=== PATIENT | male | born 1955 | race Two or more races ===

== ENCOUNTER 2020-03-17 03:53 | Inpatient (IN) | payer SELFPAY ==
[~2020-03-17] VITALS: Ht 165.1 cm; Wt 70.9 kg
--- NOTE | 2020-03-17 04:11 | NUR ---
Patient BIB flight from [place] for a septic arthritic left knee. Patient WBC at their facility were 25. Patient received Rocephin and Vanco ROAD FREIGHT CONDUCTOR. Patient is in NAD. Respirations even and unlabored.
[2020-03-17 04:35] LABS: MEAN CORPUSCULAR HEMOGLOBIN 29.7 pg (27.5-34.5); MEAN CORPUSCULAR HGB CONC 32.7 g/dL (33.2-36.2); MEAN CORPUSCULAR VOLUME 90.9 fL (81-97); MEAN PLATELET VOLUME 7.9 fL (7.4-10.4); PLATELET COUNT 350 x10^3/uL (130-400); RED BLOOD COUNT 4.64 x10^6/uL (4.38-5.82); RED CELL DISTRIBUTION WIDTH 12.2 % (9.4-14.8)
--- NOTE | 2020-03-17 04:40 | NUR ---
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 Calling [facility] to confirm.
[2020-03-17 04:47] LABS: ALBUMIN 2.8 g/dL (3.4-5.0); ANION GAP 10 mmol/L (5-15); CALCIUM 8.7 mg/dL (8.5-10.1); CHLORIDE 100 mmol/L (98-107); CREATININE 0.77 mg/dL (0.7-1.3)
[2020-03-17 04:49] LABS: BASOPHILS # (AUTO) 0.02 x10^3/uL (0-0.1); BASOPHILS % (AUTO) 0 % (0-1); EOSINOPHILS % (AUTO) 0 % (1-7); LYMPHOCYTES # (AUTO) 1.22 x10^3/uL (1-3.4); LYMPHOCYTES % (AUTO) 6 % (22-44); MD SCAN; MONOCYTES # (AUTO) 0.45 x10^3/uL (0.2-0.8); MONOCYTES % (AUTO) 2 % (2-9); NEUTROPHILS # (AUTO) 19.84 x10^3/uL (1.8-6.8); NEUTROPHILS % (AUTO) 92 % (42-75)
[2020-03-17] MEDS ORDERED: PRED20TA PO (05:08)
[2020-03-17] MEDS ORDERED: INDO75CA3 PO (05:08)
[2020-03-17] MEDS ORDERED: BISACODYL 10 MG SUPP PR PRN (06:00)
[2020-03-17] MEDS ORDERED: VANCOMYCIN PER PHARMACY MC PRN (06:00)
[2020-03-17] MEDS ORDERED: hydrALAzine 20 MG/ML, 1ML IVPush PRN (06:00)
[2020-03-17] MEDS ORDERED: PROMETHAZINE 25 MG/ML, 1ML IM PRN (06:00)
[2020-03-17] MEDS ORDERED: ONDANSETRON 2MG/ML, 2ML IVPush PRN ×2 (06:00→15:00)
--- NOTE | 2020-03-17 06:21 | NUR ---
Report given to KIRILL Willett. Patient to be transferred to room 452.
[2020-03-17 06:37] LABS: CHOL/HDL RATIO 7.5; LDL/HDL RATIO 4.4 (0.5-3.0)
[2020-03-17] MEDS ORDERED: HYDROmorphone 1 MG/ML, 1ML INJ ONE (06:49)
[2020-03-17] MEDS: HYDROmorphone 2 MG/ML, 1ML IVPush PRN ×3 (06:52→13:25)
--- NOTE | 2020-03-17 06:53 | NUR ---
Patient c/o increased pain. Medicated patient per mar.
[2020-03-17 07:51] VITALS: BP 144/86
[2020-03-17] MEDS: SODIUM CHLORIDE 0.9% 1,000 ML IV SCH ×2 (08:15→20:00)
[2020-03-17] MEDS: PIPERACILLIN/TAZO/PMX 3.375GM 50 ML IV SCH ×2 (08:29→18:05)
[2020-03-17] MEDS ORDERED: PHARMACOKINETIC MONITORING MC PRN (09:00)
[2020-03-17] MEDS ORDERED: VANCOMYCIN 1,500 MG in SODIUM CHLORIDE 0.9% 250 ML IV ONE (09:00)
[2020-03-17] MEDS ORDERED: PHARMACOKINETIC CONSULTATION MC ONE (09:00)
[2020-03-17 10:20] LABS: MICROSCOPIC NOT IND
[2020-03-17] MEDS: INSULIN LISPRO 100 UNITS/ML, PEN SQ-INSULIN SCH ×4 (10:47→21:04)
[2020-03-17] MEDS ORDERED: CHLORHEXIDINE 15 ML UDC MM STA (14:09)
[2020-03-17] MEDS ORDERED: MIDAZOLAM 1 MG/ML, 2ML ONE (14:41)
[2020-03-17] MEDS ORDERED: FENTANYL PF 100 MCG/2ML ONE ×3 (14:41→15:29)
[2020-03-17] MEDS ORDERED: KETOROLAC 30 MG/1 ML ONE (14:54)
[2020-03-17] MEDS ORDERED: LIDOCAINE-MPF 2% ,5ML ONE (14:54)
[2020-03-17] MEDS ORDERED: LABETALOL 5MG/ML, 20ML IV PRN (15:00)
[2020-03-17] MEDS ORDERED: HYDROmorphone 1 MG/ML, 1ML INJ IVPush PRN (15:00)
[2020-03-17] MEDS ORDERED: EPHEDRINE 50 MG/ML, 1ML IVPush PRN (15:00)
[2020-03-17] MEDS ORDERED: ACETAMINOPHEN 325 MG TABLET PO PRN (15:00)
[2020-03-17] MEDS ORDERED: hydrALAzine 20 MG/ML, 1ML IV PRN (15:00)
[2020-03-17] MEDS ORDERED: PROMETHAZINE 25 MG/ML, 1ML IVPush PRN (15:00)
[2020-03-17] MEDS ORDERED: MEPERIDINE/PF 25MG/0.5ML IVPush PRN (15:00)
[2020-03-17] MEDS ORDERED: OXYcodone 5 MG/5 ML ORAL.SOL UDC PO PRN (15:00)
[2020-03-17] MEDS ORDERED: PROPOFOL 10 MG/ML, 20ML ONE (15:02)
[2020-03-17] MEDS ORDERED: ONDANSETRON 2MG/ML, 2ML ONE (15:02)
[2020-03-17] MEDS ORDERED: DEXAMETHASONE 4 MG/ML, 1ML ONE (15:02)
[2020-03-17] MEDS ORDERED: OXYcodone 5 MG/5 ML ORAL.SOL UDC ONE (15:29)
[2020-03-17] MEDS ORDERED: ACETAMINOPHEN 650 MG/20.3 ML UDC ONE (15:33)
[2020-03-17] MEDS: FENTANYL PF 100 MCG/2ML IV PRN ×2 (15:41→15:49)
[2020-03-17 16:45] VITALS: BP 132/81
[2020-03-17 19:02] VITALS: BP 127/74
[2020-03-17] MEDS: MELATONIN 5 MG TABLET PO PRN (21:11)
[2020-03-17] MEDS: ACETAMINOPHEN 325 MG TABLET PO PRN (21:11)
[2020-03-17 23:58] VITALS: BP 116/70
[2020-03-18] MEDS: PIPERACILLIN/TAZO/PMX 3.375GM 50 ML IV SCH (02:11)
[2020-03-18] MEDS: VANCOMYCIN 1,400 MG in SODIUM CHLORIDE 0.9% 250 ML IV SCH ×2 (03:18→21:27)
[2020-03-18 03:29] VITALS: BP 113/67
[2020-03-18 05:16] LABS: MEAN CORPUSCULAR HEMOGLOBIN 30.4 pg (27.5-34.5); MEAN CORPUSCULAR HGB CONC 33.5 g/dL (33.2-36.2); MEAN CORPUSCULAR VOLUME 90.7 fL (81-97); MEAN PLATELET VOLUME 8.1 fL (7.4-10.4); PLATELET COUNT 312 x10^3/uL (130-400); RED BLOOD COUNT 4.29 x10^6/uL (4.38-5.82); RED CELL DISTRIBUTION WIDTH 12.6 % (9.4-14.8)
[2020-03-18 05:22] LABS: ANION GAP 10 mmol/L (5-15); CALCIUM 8.7 mg/dL (8.5-10.1); CHLORIDE 104 mmol/L (98-107)
[2020-03-18 05:23] LABS: CREATININE 0.68 mg/dL (0.7-1.3)
[2020-03-18 05:52] LABS: BASOPHILS % (AUTO) 0 % (0-1); EOSINOPHILS % (AUTO) 0 % (1-7); LYMPHOCYTES # (AUTO) 1.44 x10^3/uL (1-3.4); LYMPHOCYTES % (AUTO) 7 % (22-44); MD SCAN; MONOCYTES # (AUTO) 0.71 x10^3/uL (0.2-0.8); MONOCYTES % (AUTO) 3 % (2-9); NEUTROPHILS # (AUTO) 19.37 x10^3/uL (1.8-6.8); NEUTROPHILS % (AUTO) 90 % (42-75)
[2020-03-18 07:00] VITALS: BP 138/73
[2020-03-18] MEDS: ACETAMINOPHEN 325 MG TABLET PO PRN (07:44)
[2020-03-18] MEDS: INSULIN LISPRO 100 UNITS/ML, PEN SQ-INSULIN SCH ×4 (07:44→21:46)
[2020-03-18] MEDS ORDERED: AZITHROMYCIN 500 MG TABLET PO ONE (10:30)
[2020-03-18] MEDS: SODIUM CHLORIDE 0.9% 1,000 ML IV SCH ×2 (11:03→22:00)
[2020-03-18] MEDS: CEFTRIAXONE PMX 2GM/50ML 50 ML IV SCH (11:04)
[2020-03-18] MEDS ORDERED: HYDROcodone/APAP 5/325 TABLET ONE (13:33)
[2020-03-18] MEDS: HYDROcodone/APAP 5/325 TABLET PO PRN ×2 (13:35→18:29)
[2020-03-18 14:25] VITALS: BP 161/82
[2020-03-18 18:29] VITALS: BP 167/91
[2020-03-18] MEDS ORDERED: INSULIN GLARGINE 100 UNITS/ML, PEN SQ-INSULIN SCH (21:00)
[2020-03-18] MEDS: HYDROmorphone 2 MG/ML, 1ML IVPush PRN (21:26)
[2020-03-19] MEDS: DOCUSATE 100 MG CAPSULE PO PRN ×2 (02:21→20:05)
[2020-03-19 02:31] VITALS: BP_SYST 115; BP_SYST 155; BP_DIAS 49; BP_DIAS 91
[2020-03-19] MEDS: HYDROcodone/APAP 5/325 TABLET PO PRN ×4 (03:54→20:05)
[2020-03-19 05:02] LABS: BASOPHILS # (AUTO) 0.01 x10^3/uL (0-0.1); BASOPHILS % (AUTO) 0 % (0-1); EOSINOPHILS # (AUTO) 0.03 x10^3/uL (0-0.4); EOSINOPHILS % (AUTO) 0 % (1-7); LYMPHOCYTES # (AUTO) 2.07 x10^3/uL (1-3.4); LYMPHOCYTES % (AUTO) 15 % (22-44); MD NO; MEAN CORPUSCULAR HEMOGLOBIN 30.3 pg (27.5-34.5); MEAN CORPUSCULAR HGB CONC 33.5 g/dL (33.2-36.2); MEAN CORPUSCULAR VOLUME 90.4 fL (81-97); MONOCYTES # (AUTO) 0.71 x10^3/uL (0.2-0.8); MONOCYTES % (AUTO) 5 % (2-9); NEUTROPHILS # (AUTO) 11.17 x10^3/uL (1.8-6.8); NEUTROPHILS % (AUTO) 80 % (42-75); PLATELET COUNT 342 x10^3/uL (130-400); RED BLOOD COUNT 4.28 x10^6/uL (4.38-5.82); RED CELL DISTRIBUTION WIDTH 12.8 % (9.4-14.8)
[2020-03-19 05:09] LABS: ANION GAP 9 mmol/L (5-15); CALCIUM 7.9 mg/dL (8.5-10.1); CHLORIDE 101 mmol/L (98-107); CREATININE 0.64 mg/dL (0.7-1.3)
[2020-03-19 07:44] VITALS: BP 151/91
[2020-03-19] MEDS: INSULIN LISPRO 100 UNITS/ML, PEN SQ-INSULIN SCH ×4 (08:06→20:22)
[2020-03-19] MEDS: SODIUM CHLORIDE 0.9% 1,000 ML IV SCH ×2 (08:07→16:35)
[2020-03-19] MEDS ORDERED: POTASSIUM CHLORIDE 20 MEQ TAB.ER.PRT PO ONE (09:00)
[2020-03-19] MEDS: CEFTRIAXONE PMX 2GM/50ML 50 ML IV SCH (09:40)
[2020-03-19] MEDS: LISINOPRIL 10 MG TABLET PO SCH ×2 (11:30→12:44)
[2020-03-19 12:31] VITALS: BP 159/86
[2020-03-19] MEDS: metFORMIN 500 MG TABLET PO SCH (16:35)
[2020-03-19 19:06] VITALS: BP 147/86
[2020-03-19] MEDS: POLYETHYLENE GLYCOL 17 GM PACKET PO PRN (20:05)
[2020-03-19] MEDS: HYDROmorphone 2 MG/ML, 1ML IVPush PRN (20:11)
[2020-03-19] MEDS ORDERED: INSULIN GLARGINE 100 UNITS/ML, PEN SQ-INSULIN SCH (21:00)
[2020-03-20] MEDS: SODIUM CHLORIDE 0.9% 1,000 ML IV SCH ×2 (00:03→06:15)
[2020-03-20 00:36] VITALS: BP_SYST 163; BP_SYST 172; BP_DIAS 82; BP_DIAS 91
[2020-03-20] MEDS: HYDROmorphone 2 MG/ML, 1ML IVPush PRN ×2 (03:17→20:35)
[2020-03-20] MEDS: HYDROcodone/APAP 5/325 TABLET PO PRN ×5 (04:02→20:35)
[2020-03-20 05:46] LABS: BASOPHILS # (AUTO) 0.03 x10^3/uL (0-0.1); BASOPHILS % (AUTO) 0 % (0-1); EOSINOPHILS # (AUTO) 0.15 x10^3/uL (0-0.4); EOSINOPHILS % (AUTO) 1 % (1-7); LYMPHOCYTES # (AUTO) 2.23 x10^3/uL (1-3.4); LYMPHOCYTES % (AUTO) 22 % (22-44); MD NO; MEAN CORPUSCULAR HEMOGLOBIN 30.2 pg (27.5-34.5); MEAN CORPUSCULAR HGB CONC 33.7 g/dL (33.2-36.2); MEAN CORPUSCULAR VOLUME 89.7 fL (81-97); MEAN PLATELET VOLUME 7.7 fL (7.4-10.4); MONOCYTES # (AUTO) 0.66 x10^3/uL (0.2-0.8); MONOCYTES % (AUTO) 7 % (2-9); NEUTROPHILS # (AUTO) 7.11 x10^3/uL (1.8-6.8); NEUTROPHILS % (AUTO) 70 % (42-75); PLATELET COUNT 357 x10^3/uL (130-400); RED BLOOD COUNT 4.34 x10^6/uL (4.38-5.82); RED CELL DISTRIBUTION WIDTH 12.9 % (9.4-14.8)
[2020-03-20 05:47] LABS: ANION GAP 10 mmol/L (5-15); CALCIUM 8.1 mg/dL (8.5-10.1); CHLORIDE 100 mmol/L (98-107)
[2020-03-20 05:51] LABS: CREATININE 0.57 mg/dL (0.7-1.3)
[2020-03-20 07:26] VITALS: BP 156/85
[2020-03-20] MEDS: metFORMIN 500 MG TABLET PO SCH ×2 (08:00→16:34)
[2020-03-20] MEDS: LISINOPRIL 10 MG TABLET PO SCH (08:00)
[2020-03-20] MEDS: INSULIN LISPRO 100 UNITS/ML, PEN SQ-INSULIN SCH ×3 (08:01→16:34)
[2020-03-20] MEDS: CEFTRIAXONE PMX 2GM/50ML 50 ML IV SCH (10:04)
[2020-03-20] MEDS: ENOXAPARIN 40 MG/0.4 ML SQ SCH (11:29)
[2020-03-20 14:26] VITALS: BP 157/92
[2020-03-20 19:38] VITALS: BP 171/84
[2020-03-20] MEDS ORDERED: INSULIN GLARGINE 100 UNITS/ML, PEN SQ-INSULIN SCH (21:00)
[2020-03-21] MEDS: HYDROmorphone 2 MG/ML, 1ML IVPush PRN ×3 (00:05→17:55)
[2020-03-21] MEDS: INSULIN LISPRO 100 UNITS/ML, PEN SQ-INSULIN SCH ×5 (00:56→21:13)
[2020-03-21] MEDS: HYDROcodone/APAP 5/325 TABLET PO PRN ×4 (00:58→21:12)
[2020-03-21 02:21] VITALS: BP 143/78
[2020-03-21 04:55] LABS: BASOPHILS # (AUTO) 0.03 x10^3/uL (0-0.1); BASOPHILS % (AUTO) 0 % (0-1); EOSINOPHILS # (AUTO) 0.18 x10^3/uL (0-0.4); EOSINOPHILS % (AUTO) 2 % (1-7); LYMPHOCYTES # (AUTO) 2.34 x10^3/uL (1-3.4); LYMPHOCYTES % (AUTO) 22 % (22-44); MD NO; MEAN CORPUSCULAR HGB CONC 32.7 g/dL (33.2-36.2); MEAN CORPUSCULAR VOLUME 91.8 fL (81-97); MEAN PLATELET VOLUME 7.4 fL (7.4-10.4); MONOCYTES # (AUTO) 0.88 x10^3/uL (0.2-0.8); MONOCYTES % (AUTO) 8 % (2-9); NEUTROPHILS # (AUTO) 7.14 x10^3/uL (1.8-6.8); NEUTROPHILS % (AUTO) 68 % (42-75); PLATELET COUNT 420 x10^3/uL (130-400); RED BLOOD COUNT 4.49 x10^6/uL (4.38-5.82); RED CELL DISTRIBUTION WIDTH 12.7 % (9.4-14.8)
[2020-03-21 05:03] LABS: ANION GAP 10 mmol/L (5-15); CALCIUM 8.6 mg/dL (8.5-10.1); CHLORIDE 100 mmol/L (98-107); CREATININE 0.62 mg/dL (0.7-1.3)
[2020-03-21 07:10] VITALS: BP 138/80
[2020-03-21] MEDS: LISINOPRIL 10 MG TABLET PO SCH (08:04)
[2020-03-21] MEDS: metFORMIN 500 MG TABLET PO SCH ×2 (08:04→16:12)
[2020-03-21] MEDS ORDERED: POTASSIUM CHLORIDE 20 MEQ TAB.ER.PRT PO ONE (09:30)
[2020-03-21] MEDS: CEFTRIAXONE PMX 2GM/50ML 50 ML IV SCH (09:49)
[2020-03-21] MEDS: ENOXAPARIN 40 MG/0.4 ML SQ SCH (11:08)
[2020-03-21 13:36] VITALS: BP 167/85
[2020-03-21 20:01] VITALS: BP 157/82
[2020-03-21] MEDS: INSULIN GLARGINE 100 UNITS/ML, PEN SQ-INSULIN SCH (21:13)
[2020-03-22] MEDS: HYDROmorphone 2 MG/ML, 1ML IVPush PRN ×2 (01:09→21:39)
[2020-03-22] MEDS: HYDROcodone/APAP 5/325 TABLET PO PRN ×6 (01:40→22:22)
[2020-03-22 01:58] VITALS: BP 131/77
[2020-03-22 05:50] LABS: BASOPHILS # (AUTO) 0.03 x10^3/uL (0-0.1); BASOPHILS % (AUTO) 0 % (0-1); EOSINOPHILS # (AUTO) 0.26 x10^3/uL (0-0.4); EOSINOPHILS % (AUTO) 3 % (1-7); LYMPHOCYTES # (AUTO) 2.55 x10^3/uL (1-3.4); LYMPHOCYTES % (AUTO) 28 % (22-44); MD NO; MEAN CORPUSCULAR HGB CONC 33.4 g/dL (33.2-36.2); MEAN CORPUSCULAR VOLUME 89.7 fL (81-97); MEAN PLATELET VOLUME 7.4 fL (7.4-10.4); MONOCYTES # (AUTO) 0.66 x10^3/uL (0.2-0.8); MONOCYTES % (AUTO) 7 % (2-9); NEUTROPHILS # (AUTO) 5.57 x10^3/uL (1.8-6.8); NEUTROPHILS % (AUTO) 62 % (42-75); PLATELET COUNT 443 x10^3/uL (130-400); RED BLOOD COUNT 4.52 x10^6/uL (4.38-5.82); RED CELL DISTRIBUTION WIDTH 12.8 % (9.4-14.8)
[2020-03-22 05:56] LABS: ANION GAP 12 mmol/L (5-15); CALCIUM 9.5 mg/dL (8.5-10.1); CHLORIDE 99 mmol/L (98-107)
[2020-03-22 05:57] LABS: CREATININE 0.63 mg/dL (0.7-1.3)
[2020-03-22 07:23] VITALS: BP 146/79
[2020-03-22] MEDS: LISINOPRIL 10 MG TABLET PO SCH (07:59)
[2020-03-22] MEDS: metFORMIN 500 MG TABLET PO SCH ×2 (07:59→16:25)
[2020-03-22] MEDS: INSULIN LISPRO 100 UNITS/ML, PEN SQ-INSULIN SCH ×4 (08:00→21:40)
[2020-03-22] MEDS: CEFTRIAXONE PMX 2GM/50ML 50 ML IV SCH (09:16)
[2020-03-22] MEDS: ENOXAPARIN 40 MG/0.4 ML SQ SCH (10:55)
[2020-03-22 14:38] VITALS: BP 144/75
[2020-03-22 19:15] VITALS: BP 157/83
[2020-03-22] MEDS: INSULIN GLARGINE 100 UNITS/ML, PEN SQ-INSULIN SCH (21:40)
[2020-03-23] MEDS: HYDROcodone/APAP 5/325 TABLET PO PRN ×5 (01:31→20:31)
[2020-03-23 02:28] VITALS: BP 130/76
[2020-03-23 04:05] LABS: BASOPHILS # (AUTO) 0.03 x10^3/uL (0-0.1); BASOPHILS % (AUTO) 0 % (0-1); EOSINOPHILS # (AUTO) 0.36 x10^3/uL (0-0.4); EOSINOPHILS % (AUTO) 4 % (1-7); LYMPHOCYTES # (AUTO) 1.98 x10^3/uL (1-3.4); LYMPHOCYTES % (AUTO) 21 % (22-44); MD NO; MEAN CORPUSCULAR HEMOGLOBIN 30.3 pg (27.5-34.5); MEAN CORPUSCULAR HGB CONC 33.6 g/dL (33.2-36.2); MEAN CORPUSCULAR VOLUME 90.1 fL (81-97); MEAN PLATELET VOLUME 7.6 fL (7.4-10.4); MONOCYTES # (AUTO) 0.65 x10^3/uL (0.2-0.8); MONOCYTES % (AUTO) 7 % (2-9); NEUTROPHILS # (AUTO) 6.61 x10^3/uL (1.8-6.8); NEUTROPHILS % (AUTO) 69 % (42-75); PLATELET COUNT 475 x10^3/uL (130-400); RED BLOOD COUNT 4.35 x10^6/uL (4.38-5.82); RED CELL DISTRIBUTION WIDTH 12.7 % (9.4-14.8)
[2020-03-23 04:17] LABS: ANION GAP 7 mmol/L (5-15); CALCIUM 8.9 mg/dL (8.5-10.1); CHLORIDE 100 mmol/L (98-107); CREATININE 0.64 mg/dL (0.7-1.3)
[2020-03-23] MEDS: HYDROmorphone 2 MG/ML, 1ML IVPush PRN ×3 (06:19→23:44)
[2020-03-23 07:54] VITALS: BP 130/97
[2020-03-23] MEDS: LISINOPRIL 20 MG TABLET PO SCH (08:21)
[2020-03-23] MEDS: metFORMIN 500 MG TABLET PO SCH ×2 (08:21→16:31)
[2020-03-23] MEDS: INSULIN LISPRO 100 UNITS/ML, PEN SQ-INSULIN SCH ×4 (08:21→23:31)
[2020-03-23] MEDS: CEFTRIAXONE PMX 2GM/50ML 50 ML IV SCH (10:24)
[2020-03-23] MEDS: ENOXAPARIN 40 MG/0.4 ML SQ SCH (10:36)
[2020-03-23 12:57] VITALS: BP 134/80
[2020-03-23 20:42] VITALS: BP 152/92
[2020-03-23] MEDS: INSULIN GLARGINE 100 UNITS/ML, PEN SQ-INSULIN SCH (23:32)
[2020-03-24] MEDS: HYDROcodone/APAP 5/325 TABLET PO PRN ×6 (00:50→22:25)
[2020-03-24 02:01] VITALS: BP 145/80
[2020-03-24] MEDS: DOCUSATE 100 MG CAPSULE PO PRN (04:57)
[2020-03-24 06:35] VITALS: BP 145/81
[2020-03-24 07:32] LABS: BASOPHILS # (AUTO) 0.01 x10^3/uL (0-0.1); BASOPHILS % (AUTO) 0 % (0-1); EOSINOPHILS # (AUTO) 0.32 x10^3/uL (0-0.4); EOSINOPHILS % (AUTO) 4 % (1-7); LYMPHOCYTES # (AUTO) 1.82 x10^3/uL (1-3.4); LYMPHOCYTES % (AUTO) 22 % (22-44); MD NO; MEAN CORPUSCULAR HEMOGLOBIN 29.9 pg (27.5-34.5); MEAN CORPUSCULAR HGB CONC 33.2 g/dL (33.2-36.2); MEAN PLATELET VOLUME 7.5 fL (7.4-10.4); MONOCYTES # (AUTO) 0.65 x10^3/uL (0.2-0.8); MONOCYTES % (AUTO) 8 % (2-9); NEUTROPHILS # (AUTO) 5.68 x10^3/uL (1.8-6.8); NEUTROPHILS % (AUTO) 67 % (42-75); PLATELET COUNT 525 x10^3/uL (130-400); RED BLOOD COUNT 4.51 x10^6/uL (4.38-5.82); RED CELL DISTRIBUTION WIDTH 12.7 % (9.4-14.8)
[2020-03-24 07:33] LABS: HCT (SEDRATE) 40.6 % (39.2-51.8)
[2020-03-24 07:44] LABS: ALBUMIN 2.3 g/dL (3.4-5.0); ANION GAP 10 mmol/L (5-15); CHLORIDE 96 mmol/L (98-107)
[2020-03-24] MEDS: POLYETHYLENE GLYCOL 17 GM PACKET PO PRN (07:49)
[2020-03-24] MEDS: metFORMIN 500 MG TABLET PO SCH ×2 (07:49→16:26)
[2020-03-24] MEDS: LISINOPRIL 20 MG TABLET PO SCH (07:49)
[2020-03-24] MEDS: INSULIN LISPRO 100 UNITS/ML, PEN SQ-INSULIN SCH ×4 (07:50→21:50)
[2020-03-24 07:52] LABS: ALANINE AMINOTRANSFERASE 36 U/L (12-78); ALKALINE PHOSPHATASE 170 U/L (45-117); BILIRUBIN,TOTAL 0.8 mg/dL (0.2-1.0); CREATININE 0.75 mg/dL (0.7-1.3); TOTAL PROTEIN 8.9 g/dL (6.4-8.2)
[2020-03-24] MEDS: CEFTRIAXONE PMX 2GM/50ML 50 ML IV SCH (09:19)
[2020-03-24] MEDS: HYDROmorphone 2 MG/ML, 1ML IVPush PRN ×2 (11:37→21:36)
[2020-03-24] MEDS: ENOXAPARIN 40 MG/0.4 ML SQ SCH (11:38)
[2020-03-24 14:45] VITALS: BP 123/65
[2020-03-24] MEDS: FERROUS SULFATE 325 MG TABLET PO SCH (16:26)
[2020-03-24 20:14] VITALS: BP 144/82
[2020-03-24] MEDS: INSULIN GLARGINE 100 UNITS/ML, PEN SQ-INSULIN SCH (21:50)
[2020-03-24] MEDS: MELATONIN 5 MG TABLET PO PRN (22:25)
[2020-03-25 02:22] VITALS: BP 148/79
[2020-03-25] MEDS: HYDROcodone/APAP 5/325 TABLET PO PRN ×6 (02:30→22:33)
[2020-03-25 05:43] LABS: BASOPHILS # (AUTO) 0.03 x10^3/uL (0-0.1); BASOPHILS % (AUTO) 0 % (0-1); EOSINOPHILS # (AUTO) 0.38 x10^3/uL (0-0.4); EOSINOPHILS % (AUTO) 5 % (1-7); LYMPHOCYTES # (AUTO) 2.16 x10^3/uL (1-3.4); LYMPHOCYTES % (AUTO) 26 % (22-44); MD NO; MEAN CORPUSCULAR HEMOGLOBIN 29.9 pg (27.5-34.5); MEAN CORPUSCULAR HGB CONC 33.3 g/dL (33.2-36.2); MEAN CORPUSCULAR VOLUME 89.9 fL (81-97); MEAN PLATELET VOLUME 7.7 fL (7.4-10.4); MONOCYTES # (AUTO) 0.65 x10^3/uL (0.2-0.8); MONOCYTES % (AUTO) 8 % (2-9); NEUTROPHILS # (AUTO) 5.18 x10^3/uL (1.8-6.8); NEUTROPHILS % (AUTO) 62 % (42-75); PLATELET COUNT 448 x10^3/uL (130-400); RED BLOOD COUNT 4.41 x10^6/uL (4.38-5.82); RED CELL DISTRIBUTION WIDTH 12.7 % (9.4-14.8)
[2020-03-25 06:03] LABS: ANION GAP 9 mmol/L (5-15); CALCIUM 9.1 mg/dL (8.5-10.1); CHLORIDE 99 mmol/L (98-107); CREATININE 0.66 mg/dL (0.7-1.3)
[2020-03-25] MEDS: INSULIN LISPRO 100 UNITS/ML, PEN SQ-INSULIN SCH ×4 (07:00→22:40)
[2020-03-25 07:36] VITALS: BP 152/74
[2020-03-25] MEDS: CEFTRIAXONE PMX 2GM/50ML 50 ML IV SCH (09:15)
[2020-03-25] MEDS: DOCUSATE 100 MG CAPSULE PO PRN (09:16)
[2020-03-25] MEDS: FERROUS SULFATE 325 MG TABLET PO SCH ×2 (09:16→17:12)
[2020-03-25] MEDS: metFORMIN 500 MG TABLET PO SCH ×2 (09:16→17:13)
[2020-03-25] MEDS: LISINOPRIL 20 MG TABLET PO SCH (09:16)
[2020-03-25] MEDS: ENOXAPARIN 40 MG/0.4 ML SQ SCH (11:35)
[2020-03-25] MEDS: HYDROmorphone 2 MG/ML, 1ML IVPush PRN ×2 (13:17→20:19)
[2020-03-25 14:02] VITALS: BP 127/76
[2020-03-25 20:08] VITALS: BP 144/71
[2020-03-25] MEDS: INSULIN GLARGINE 100 UNITS/ML, PEN SQ-INSULIN SCH (22:41)
[2020-03-26 01:09] VITALS: BP 128/74
[2020-03-26] MEDS: HYDROcodone/APAP 5/325 TABLET PO PRN ×6 (02:43→23:38)
[2020-03-26] MEDS: HYDROmorphone 2 MG/ML, 1ML IVPush PRN ×2 (03:42→13:59)
[2020-03-26] MEDS: INSULIN LISPRO 100 UNITS/ML, PEN SQ-INSULIN SCH ×4 (07:00→19:46)
[2020-03-26 07:09] VITALS: BP 127/73
[2020-03-26] MEDS: DOCUSATE 100 MG CAPSULE PO PRN (08:32)
[2020-03-26] MEDS: FERROUS SULFATE 325 MG TABLET PO SCH ×2 (08:32→16:55)
[2020-03-26] MEDS: metFORMIN 500 MG TABLET PO SCH ×2 (08:32→16:55)
[2020-03-26] MEDS: CEFTRIAXONE PMX 2GM/50ML 50 ML IV SCH (08:33)
[2020-03-26] MEDS: LISINOPRIL 20 MG TABLET PO SCH (08:33)
[2020-03-26] MEDS: ENOXAPARIN 40 MG/0.4 ML SQ SCH (11:22)
[2020-03-26 12:23] VITALS: BP 146/79
[2020-03-26 19:53] VITALS: BP 158/75
[2020-03-26] MEDS: INSULIN GLARGINE 100 UNITS/ML, PEN SQ-INSULIN SCH (20:27)
[2020-03-27 01:56] VITALS: BP 126/75
[2020-03-27] MEDS: HYDROcodone/APAP 5/325 TABLET PO PRN ×5 (03:41→19:52)
[2020-03-27 07:00] VITALS: BP 130/77
[2020-03-27] MEDS: INSULIN LISPRO 100 UNITS/ML, PEN SQ-INSULIN SCH ×4 (07:20→20:57)
[2020-03-27] MEDS: FERROUS SULFATE 325 MG TABLET PO SCH ×2 (07:54→17:37)
[2020-03-27] MEDS: metFORMIN 500 MG TABLET PO SCH ×2 (07:56→17:37)
[2020-03-27] MEDS: LISINOPRIL 20 MG TABLET PO SCH (07:59)
[2020-03-27] MEDS: CEFTRIAXONE PMX 2GM/50ML 50 ML IV SCH (09:11)
[2020-03-27] MEDS: ENOXAPARIN 40 MG/0.4 ML SQ SCH (11:52)
[2020-03-27 14:45] VITALS: BP 147/84
[2020-03-27 20:27] VITALS: BP 151/80
[2020-03-27] MEDS: INSULIN GLARGINE 100 UNITS/ML, PEN SQ-INSULIN SCH (20:57)
[2020-03-28] MEDS: HYDROcodone/APAP 5/325 TABLET PO PRN ×5 (00:02→20:10)
[2020-03-28 00:25] VITALS: BP 148/73
[2020-03-28] MEDS: INSULIN LISPRO 100 UNITS/ML, PEN SQ-INSULIN SCH ×4 (06:25→20:11)
[2020-03-28 07:12] VITALS: BP 136/79
[2020-03-28] MEDS: metFORMIN 500 MG TABLET PO SCH ×2 (08:39→16:32)
[2020-03-28] MEDS: FERROUS SULFATE 325 MG TABLET PO SCH ×2 (08:39→16:32)
[2020-03-28] MEDS: LISINOPRIL 20 MG TABLET PO SCH (08:40)
[2020-03-28] MEDS: CEFTRIAXONE PMX 2GM/50ML 50 ML IV SCH (10:41)
[2020-03-28] MEDS: ENOXAPARIN 40 MG/0.4 ML SQ SCH (12:19)
[2020-03-28 14:54] VITALS: BP 121/72
[2020-03-28] MEDS ORDERED: MORPHINE SULFATE 4 MG/ML, 1ML IVPush PRN (18:00)
[2020-03-28 18:43] VITALS: BP 127/80
[2020-03-28] MEDS: INSULIN GLARGINE 100 UNITS/ML, PEN SQ-INSULIN SCH (20:11)
[2020-03-29 00:45] VITALS: BP 144/87
[2020-03-29] MEDS: HYDROcodone/APAP 5/325 TABLET PO PRN ×5 (05:09→20:59)
[2020-03-29] MEDS: INSULIN LISPRO 100 UNITS/ML, PEN SQ-INSULIN SCH ×4 (06:50→20:55)
[2020-03-29 06:51] LABS: ANION GAP 9 mmol/L (5-15); CALCIUM 8.9 mg/dL (8.5-10.1); CHLORIDE 101 mmol/L (98-107); CREATININE 0.63 mg/dL (0.7-1.3)
[2020-03-29 07:50] VITALS: BP 135/80
[2020-03-29] MEDS: CEFTRIAXONE PMX 2GM/50ML 50 ML IV SCH (08:43)
[2020-03-29] MEDS: LISINOPRIL 20 MG TABLET PO SCH (08:43)
[2020-03-29] MEDS: FERROUS SULFATE 325 MG TABLET PO SCH ×2 (08:44→16:57)
[2020-03-29] MEDS: metFORMIN 500 MG TABLET PO SCH ×2 (08:44→16:58)
[2020-03-29] MEDS: ENOXAPARIN 40 MG/0.4 ML SQ SCH (12:08)
[2020-03-29 13:36] VITALS: BP 124/77
[2020-03-29] MEDS ORDERED: DIPHENHYDRAMINE 25 MG CAPSULE PO PRN (16:30)
[2020-03-29 19:24] VITALS: BP 117/73
[2020-03-29] MEDS: INSULIN GLARGINE 100 UNITS/ML, PEN SQ-INSULIN SCH (21:07)
[2020-03-30] MEDS: HYDROcodone/APAP 5/325 TABLET PO PRN ×4 (01:01→13:31)
[2020-03-30 01:17] VITALS: BP 136/82
[2020-03-30 04:23] LABS: ANION GAP 6 mmol/L (5-15); CHLORIDE 101 mmol/L (98-107)
[2020-03-30 04:25] LABS: CREATININE 0.76 mg/dL (0.7-1.3)
[2020-03-30 04:28] LABS: MEAN CORPUSCULAR HGB CONC 33.7 g/dL (33.2-36.2); MEAN CORPUSCULAR VOLUME 89.1 fL (81-97); MEAN PLATELET VOLUME 7.3 fL (7.4-10.4); PLATELET COUNT 549 x10^3/uL (130-400); RED BLOOD COUNT 4.05 x10^6/uL (4.38-5.82); RED CELL DISTRIBUTION WIDTH 12.5 % (9.4-14.8)
[2020-03-30 05:12] LABS: BASOPHILS # (AUTO) 0.03 x10^3/uL (0-0.1); BASOPHILS % (AUTO) 1 % (0-1); EOSINOPHILS # (AUTO) 0.36 x10^3/uL (0-0.4); EOSINOPHILS % (AUTO) 7 % (1-7); LYMPHOCYTES # (AUTO) 2.39 x10^3/uL (1-3.4); LYMPHOCYTES % (AUTO) 43 % (22-44); MD SCAN; MONOCYTES # (AUTO) 0.57 x10^3/uL (0.2-0.8); MONOCYTES % (AUTO) 10 % (2-9); NEUTROPHILS # (AUTO) 2.18 x10^3/uL (1.8-6.8); NEUTROPHILS % (AUTO) 39 % (42-75)
[2020-03-30] MEDS: INSULIN LISPRO 100 UNITS/ML, PEN SQ-INSULIN SCH ×4 (07:00→20:50)
[2020-03-30] MEDS: FERROUS SULFATE 325 MG TABLET PO SCH ×2 (09:17→17:05)
[2020-03-30] MEDS: metFORMIN 500 MG TABLET PO SCH ×2 (09:17→17:05)
[2020-03-30] MEDS: LISINOPRIL 20 MG TABLET PO SCH (09:17)
[2020-03-30] MEDS: CEFTRIAXONE PMX 2GM/50ML 50 ML IV SCH (09:23)
[2020-03-30 09:25] VITALS: BP 112/70
[2020-03-30] MEDS: ENOXAPARIN 40 MG/0.4 ML SQ SCH (11:08)
[2020-03-30 15:44] VITALS: BP 127/70
[2020-03-30] MEDS: ACETAMINOPHEN 325 MG TABLET PO PRN ×2 (17:05→21:10)
[2020-03-30 19:12] VITALS: BP 114/74
[2020-03-30] MEDS: INSULIN GLARGINE 100 UNITS/ML, PEN SQ-INSULIN SCH (21:10)
[2020-03-31 00:06] VITALS: BP 148/83
[2020-03-31] MEDS: ACETAMINOPHEN 325 MG TABLET PO PRN ×3 (01:37→23:05)
[2020-03-31 03:19] VITALS: BP 129/85
[2020-03-31 04:18] LABS: BASOPHILS # (AUTO) 0.02 x10^3/uL (0-0.1); BASOPHILS % (AUTO) 0 % (0-1); EOSINOPHILS # (AUTO) 0.31 x10^3/uL (0-0.4); EOSINOPHILS % (AUTO) 6 % (1-7); LYMPHOCYTES # (AUTO) 2.13 x10^3/uL (1-3.4); LYMPHOCYTES % (AUTO) 38 % (22-44); MD NO; MEAN CORPUSCULAR HEMOGLOBIN 29.8 pg (27.5-34.5); MEAN CORPUSCULAR HGB CONC 33.5 g/dL (33.2-36.2); MEAN CORPUSCULAR VOLUME 89.1 fL (81-97); MEAN PLATELET VOLUME 7.4 fL (7.4-10.4); MONOCYTES # (AUTO) 0.47 x10^3/uL (0.2-0.8); MONOCYTES % (AUTO) 8 % (2-9); NEUTROPHILS # (AUTO) 2.73 x10^3/uL (1.8-6.8); NEUTROPHILS % (AUTO) 48 % (42-75); PLATELET COUNT 579 x10^3/uL (130-400); RED BLOOD COUNT 4.18 x10^6/uL (4.38-5.82); RED CELL DISTRIBUTION WIDTH 12.4 % (9.4-14.8)
[2020-03-31 04:31] LABS: ALANINE AMINOTRANSFERASE 29 U/L (12-78); ALBUMIN 2.4 g/dL (3.4-5.0); ANION GAP 7 mmol/L (5-15); CHLORIDE 101 mmol/L (98-107)
[2020-03-31 04:38] LABS: ALKALINE PHOSPHATASE 189 U/L (45-117); BILIRUBIN,TOTAL 0.6 mg/dL (0.2-1.0); CREATININE 0.73 mg/dL (0.7-1.3)
[2020-03-31 04:58] LABS: HCT (SEDRATE) 37.2 % (39.2-51.8)
[2020-03-31 06:50] VITALS: BP 125/81
[2020-03-31] MEDS: INSULIN LISPRO 100 UNITS/ML, PEN SQ-INSULIN SCH ×4 (07:00→20:52)
[2020-03-31] MEDS: HYDROcodone/APAP 5/325 TABLET PO PRN ×2 (07:07→18:43)
[2020-03-31] MEDS: metFORMIN 500 MG TABLET PO SCH ×2 (09:51→18:17)
[2020-03-31] MEDS: CEFTRIAXONE PMX 2GM/50ML 50 ML IV SCH (09:51)
[2020-03-31] MEDS: FERROUS SULFATE 325 MG TABLET PO SCH ×2 (09:51→18:17)
[2020-03-31] MEDS: LISINOPRIL 20 MG TABLET PO SCH (09:51)
[2020-03-31] MEDS: ENOXAPARIN 40 MG/0.4 ML SQ SCH (12:22)
[2020-03-31 14:35] VITALS: BP 114/76
[2020-03-31 19:10] VITALS: BP 142/82
[2020-03-31] MEDS: INSULIN GLARGINE 100 UNITS/ML, PEN SQ-INSULIN SCH (20:51)
[2020-04-01 03:10] VITALS: BP 120/77
[2020-04-01] MEDS: INSULIN LISPRO 100 UNITS/ML, PEN SQ-INSULIN SCH ×4 (07:00→20:25)
[2020-04-01 07:35] VITALS: BP 114/66
[2020-04-01] MEDS: FERROUS SULFATE 325 MG TABLET PO SCH ×2 (08:27→17:40)
[2020-04-01] MEDS: metFORMIN 500 MG TABLET PO SCH ×2 (08:27→17:39)
[2020-04-01] MEDS: LISINOPRIL 20 MG TABLET PO SCH (08:27)
[2020-04-01] MEDS: HYDROcodone/APAP 5/325 TABLET PO PRN ×2 (08:27→17:39)
[2020-04-01] MEDS: CEFTRIAXONE PMX 2GM/50ML 50 ML IV SCH (08:32)
[2020-04-01] MEDS: ENOXAPARIN 40 MG/0.4 ML SQ SCH (11:25)
[2020-04-01 12:45] VITALS: BP 104/72
[2020-04-01 18:55] VITALS: BP 127/77
[2020-04-01] MEDS: INSULIN GLARGINE 100 UNITS/ML, PEN SQ-INSULIN SCH (20:25)
[2020-04-02 01:19] VITALS: BP 145/84
[2020-04-02] MEDS: INSULIN LISPRO 100 UNITS/ML, PEN SQ-INSULIN SCH ×4 (07:00→21:00)
[2020-04-02 07:15] VITALS: BP 145/78
[2020-04-02] MEDS: LISINOPRIL 20 MG TABLET PO SCH (08:19)
[2020-04-02] MEDS: metFORMIN 500 MG TABLET PO SCH ×2 (08:19→16:22)
[2020-04-02] MEDS: FERROUS SULFATE 325 MG TABLET PO SCH ×2 (08:20→16:22)
[2020-04-02] MEDS: CEFTRIAXONE PMX 2GM/50ML 50 ML IV SCH (09:11)
[2020-04-02] MEDS: ENOXAPARIN 40 MG/0.4 ML SQ SCH (11:04)
[2020-04-02 12:25] VITALS: BP 143/68
[2020-04-02 20:55] VITALS: BP 120/72
[2020-04-02] MEDS: INSULIN GLARGINE 100 UNITS/ML, PEN SQ-INSULIN SCH (22:14)
[2020-04-03 01:32] VITALS: BP 143/78
[2020-04-03 05:41] LABS: BASOPHILS # (AUTO) 0.04 x10^3/uL (0-0.1); BASOPHILS % (AUTO) 1 % (0-1); EOSINOPHILS # (AUTO) 0.34 x10^3/uL (0-0.4); EOSINOPHILS % (AUTO) 7 % (1-7); LYMPHOCYTES # (AUTO) 2.23 x10^3/uL (1-3.4); LYMPHOCYTES % (AUTO) 43 % (22-44); MD NO; MEAN CORPUSCULAR HEMOGLOBIN 29.6 pg (27.5-34.5); MEAN CORPUSCULAR HGB CONC 33.3 g/dL (33.2-36.2); MEAN CORPUSCULAR VOLUME 89.1 fL (81-97); MEAN PLATELET VOLUME 7.1 fL (7.4-10.4); MONOCYTES # (AUTO) 0.36 x10^3/uL (0.2-0.8); MONOCYTES % (AUTO) 7 % (2-9); NEUTROPHILS # (AUTO) 2.25 x10^3/uL (1.8-6.8); NEUTROPHILS % (AUTO) 43 % (42-75); PLATELET COUNT 576 x10^3/uL (130-400); RED BLOOD COUNT 4.21 x10^6/uL (4.38-5.82); RED CELL DISTRIBUTION WIDTH 12.1 % (9.4-14.8)
[2020-04-03 06:00] LABS: ALBUMIN 2.6 g/dL (3.4-5.0); ANION GAP 7 mmol/L (5-15); CALCIUM 9.2 mg/dL (8.5-10.1); CHLORIDE 105 mmol/L (98-107)
[2020-04-03 06:12] LABS: ALANINE AMINOTRANSFERASE 25 U/L (12-78); ALKALINE PHOSPHATASE 156 U/L (45-117); BILIRUBIN,TOTAL 0.3 mg/dL (0.2-1.0); CREATININE 0.66 mg/dL (0.7-1.3); TOTAL PROTEIN 8.8 g/dL (6.4-8.2)
[2020-04-03 06:32] LABS: HCT (SEDRATE) 37.5 % (39.2-51.8)
[2020-04-03] MEDS: INSULIN LISPRO 100 UNITS/ML, PEN SQ-INSULIN SCH ×4 (07:00→20:36)
[2020-04-03 07:10] VITALS: BP 114/78
[2020-04-03] MEDS: LISINOPRIL 20 MG TABLET PO SCH (08:06)
[2020-04-03] MEDS: metFORMIN 500 MG TABLET PO SCH ×2 (08:06→16:10)
[2020-04-03] MEDS: FERROUS SULFATE 325 MG TABLET PO SCH ×2 (08:06→16:10)
[2020-04-03] MEDS: CEFTRIAXONE PMX 2GM/50ML 50 ML IV SCH (09:28)
[2020-04-03] MEDS: ENOXAPARIN 40 MG/0.4 ML SQ SCH (11:42)
[2020-04-03 13:40] VITALS: BP 107/67
[2020-04-03 19:40] VITALS: BP 124/75
[2020-04-03] MEDS: INSULIN GLARGINE 100 UNITS/ML, PEN SQ-INSULIN SCH (20:29)
[2020-04-04 01:57] VITALS: BP 134/79
[2020-04-04] MEDS: INSULIN LISPRO 100 UNITS/ML, PEN SQ-INSULIN SCH ×4 (06:40→21:00)
[2020-04-04] MEDS: metFORMIN 500 MG TABLET PO SCH ×2 (08:01→16:04)
[2020-04-04] MEDS: FERROUS SULFATE 325 MG TABLET PO SCH ×2 (08:01→16:04)
[2020-04-04] MEDS: LISINOPRIL 20 MG TABLET PO SCH (08:01)
[2020-04-04 10:05] VITALS: BP 108/66
[2020-04-04] MEDS: CEFTRIAXONE PMX 2GM/50ML 50 ML IV SCH (10:07)
[2020-04-04] MEDS: ENOXAPARIN 40 MG/0.4 ML SQ SCH (10:52)
[2020-04-04 12:35] VITALS: BP 114/73
[2020-04-04 21:41] VITALS: BP 105/68
[2020-04-04] MEDS: INSULIN GLARGINE 100 UNITS/ML, PEN SQ-INSULIN SCH (21:51)
[2020-04-05 02:20] VITALS: BP 117/79
[2020-04-05] MEDS: INSULIN LISPRO 100 UNITS/ML, PEN SQ-INSULIN SCH (07:00)
[2020-04-05 07:02] VITALS: BP 146/74
[2020-04-05] MEDS ORDERED: FERR-51 PO (08:30)
[2020-04-05] MEDS ORDERED: LISI-170 PO (08:30)
[2020-04-05] MEDS ORDERED: SITA100T PO (08:30)
[2020-04-05] MEDS ORDERED: METF500T PO (08:30)
[2020-04-05] MEDS: CEFTRIAXONE PMX 2GM/50ML 50 ML IV SCH (09:08)
[2020-04-05] MEDS: LISINOPRIL 20 MG TABLET PO SCH (09:09)
[2020-04-05] MEDS: FERROUS SULFATE 325 MG TABLET PO SCH (09:09)
[2020-04-05] MEDS: metFORMIN 500 MG TABLET PO SCH (09:09)
== END 2020-04-05 11:15 | disposition home or self-care (01) | DRG 854 ==
LOC: ED 04:23 → EDIP 05:42 → 4NE 07:09 → DCLOUNGE 04-05 10:42
PROVIDERS: ADMIT Internal Medicine; ATTEND Family Medicine
PROC: 0SBD0ZZ Excision of Left Knee Joint, Open Approach (ICD-10-PCS; principal; 2020-04-01)
DX: A41.9 Sepsis, unspecified organism (principal); E87.1 Hypo-osmolality and hyponatremia; M00.9 Pyogenic arthritis, unspecified; D50.9 Iron deficiency anemia, unspecified; E10.65 Type 1 diabetes mellitus with hyperglycemia; F41.9 Anxiety disorder, unspecified; I10 Essential (primary) hypertension; M10.9 Gout, unspecified; M13.0 Polyarthritis, unspecified; Z20.828 Contact with and (suspected) exposure to other viral communicable diseases; M65.9 Synovitis and tenosynovitis, unspecified; D72.829 Elevated white blood cell count, unspecified; N43.3 Hydrocele, unspecified; Z79.899 Other long term (current) drug therapy; Z91.19 Patient's noncompliance with other medical treatment and regimen; D47.3 Essential (hemorrhagic) thrombocythemia
CPT/HCPCS: 36415; 76870; 86431; 87806; 99291; J3490; 80048; 80053; 80061; 81003; 82040; 82728; 82962; 83036; 83540; 83550; 83735; 84100; 84550; 85025; 85651; 86140; 86200; 86592; 87040; 87070; 87075; 87205; 87491; 87591; 87635; 93005; C1729; G0378; J0696; J1100; J1170; J1650; J1885; J2250; J2405; J2543; J2704; J3010; J3370; G0475; J1815; J2270; J7030; J7050; Q0163; Q0177